=== PATIENT | female | born 1970 | race Caucasian/White ===

== ENCOUNTER 2022-11-24 20:54 | Outpatient (REF) | payer OTHER, SELFPAY ==
[2022-11-30 10:12] LABS: Age Gdln ACOG Testing Note (.); HPV Aptima Negative (Negative); IGP, Aptima HPV, rfx 16/18,45 Note (.)
== END 2022-11-24 20:55 | disposition home or self-care (01) ==
LOC: LAB 20:54
PROVIDERS: PCP Family Medicine; Visit Provider Obstetrics & Gynecology
DX: Z12.4 Encounter for screening for malignant neoplasm of cervix (principal)
CPT/HCPCS: 87624; G0145

== ENCOUNTER 2023-02-09 15:30 | Outpatient (OUT) | payer OTHER, SELFPAY ==
--- NOTE | 2023-02-09 15:36 | XR_ITS ---
The [address] [address] Patient Name: MI GARSIA MRN: [id number] date: 1970 Sex: F Assigned Patient Location: [facility] Current Patient Location: Accession/Order Number: [id number] Exam Date: 02/09/2023 15:50 Report Date: 02/10/2023 02:52 At the request of: HE DE GUZMAN Procedure: XR DEXA axial skeleton EXAMINATION: XR DEXA axial skeleton HISTORY: Screening For Osteoporosis Z01.419 COMPARISON: No relevant comparison available. TECHNIQUE: Dual-energy X-ray absorptiometry (DXA) was performed. FINDINGS: SPINE ANALYSIS: Average bone mineral density is 1.344 g/cm2. T-score (standard deviation relative to young adult mean): 1.4 . HIP ANALYSIS: Lowest bone mineral density is within the left femoral neck, 1.000 g/cm2. T-score (standard deviation relative to young adult mean): -0.3 . XR/XR DEXA axial skeleton IMPRESSION: [employer] Classification: Normal - Low Fracture Risk Electronically authenticated by: KYLIE IVERSON Date: 02/10/2023 02:52
== END 2023-02-09 15:31 | disposition home or self-care (01) ==
LOC: RAD 15:30
PROVIDERS: PCP Family Medicine; Visit Provider Obstetrics & Gynecology
DX: Z01.419 Encounter for gynecological examination (general) (routine) without abnormal findings (principal)
CPT/HCPCS: 77080

== ENCOUNTER 2023-02-11 09:01 | Outpatient (OUT) | payer OTHER, SELFPAY ==
[2023-02-11 09:30] LABS: Hematocrit 39.4 % (36.0-48.0); Hemoglobin 12.3 g/dL (12.0-16.0); Mean Corpuscular HGB Conc 31.2 g/dL (29.9-35.2); Mean Corpuscular Hemoglobin 26.5 pg (26.7-34.0); Mean Corpuscular Volume 84.9 fL (81.0-99.0); Mean Platelet Volume 12.4 fL (9.5-13.5); Platelet Count 257 10^3/uL (150-450); Red Blood Count 4.64 10^6/uL (4.20-5.40); Red Cell Distribution Width 13.8 % (11.0-15.0); White Blood Count 6.5 10^3/uL (4.0-11.0)
[2023-02-11 09:40] LABS: Estimated Average Glucose 105 mg/dL; Glycohemoglobin A1C 5.3 % (4.5-6.2)
[2023-02-11 09:43] LABS: Alanine Aminotransferase 25 U/L (14-59); Albumin Globulin Ratio 0.8; Albumin Level 3.2 g/dL (3.4-5.0); Alkaline Phosphatase 66 U/L (46-116); Anion Gap 13.4; Aspartate Amino Transferase 15 U/L (15-37); BUN Creatinine Ratio 14.8; Bilirubin Total 0.3 mg/dL (0.2-1.0); Calcium 8.3 mg/dL (8.5-10.1); Carbon Dioxide 21.8 mmol/L (21.0-32.0); Chloride 107 mmol/L (98-107); Chol HDL Ratio 3.4; Cholesterol 163 mg/dL (<=200); Estimated GFR (African America >60 (>=60); Estimated GFR (Non-African Ame >60 (>=60); Globulin 3.9 g/dL; Glucose 94 mg/dL (74-106); HDL Cholesterol 48 mg/dL (40-60); LDL Cholesterol Calculated 94.6 mg/dL; Potassium 4.2 mmol/L (3.5-5.1); Sodium 138 mmol/L (136-145); Total Protein 7.1 g/dL (6.4-8.2); Triglycerides 102 mg/dL (<=150); VLDL CHOLESTEROL 20.4 mg/dL
[2023-02-11 10:07] LABS: TSH W/ REFLEX FT4 2.001 (0.358-3.740)
== END 2023-02-11 09:02 | disposition home or self-care (01) ==
PROVIDERS: PCP Family Medicine
DX: N20.0 Calculus of kidney (principal); E66.9 Obesity, unspecified; R40.0 Somnolence; Z78.9 Other specified health status; F32.9 Major depressive disorder, single episode, unspecified; F41.9 Anxiety disorder, unspecified; O24.419 Gestational diabetes mellitus in pregnancy, unspecified control; Z76.89 Persons encountering health services in other specified circumstances
CPT/HCPCS: 36415; 80053; 80061; 82607; 83036; 84443; 85027

== ENCOUNTER 2023-02-15 15:57 | Outpatient (OUT) | payer OTHER, SELFPAY ==
--- NOTE | 2023-02-15 15:59 | MM_ITS ---
Patient Name: MI GARSIA MR#: [id number] : 1970 Exam Date: 02/15/2023 Ordering Doctor: DR Sumanth Jackson . RADIOLOGY REPORT PROCEDURE: MM TOMOSYNTHESIS SCREENING BI COMPARISON: MG MAMM SCREEN 3D DARIAN CAD, 12/03/2021. MG MAMM SCREEN DARIAN W CAD, 01/18/2020. MG MAMM SCREEN DARIAN W CAD, 01/15/2019. MG MAMM DARINA SCRN W CAD DIG, 07/24/2012. INDICATIONS: Screening Calculator Name NCI Breast Cancer Risk Assessment Tool 5 Year Breast Cancer Risk 1.10% Lifetime Breast Cancer Risk 9.90% Personal Breast Cancer No Personal Ovarian Cancer No Treatments Excision Family Cancers Father with lung cancer at age ~40. LOCATION: [facility] BREAST COMPOSITION: Almost entirely fatty. FINDINGS: DIAGNOSTIC CATEGORY 1--NEGATIVE. RIGHT BREAST: No significant suspicious finding. No significant change has occurred. LEFT BREAST: No significant suspicious finding. No significant change has occurred. RECOMMENDATIONS: ROUTINE MAMMOGRAM AND CLINICAL EVALUATION IN 12 MONTHS. PLEASE NOTE: A NORMAL MAMMOGRAM DOES NOT EXCLUDE THE POSSIBILITY OF BREAST CANCER. A CLINICALLY SUSPICIOUS PALPABLE LUMP SHOULD BE BIOPSIED. Dictated by: Alan Gaviria M.D. on 02/17/2023 at 14:16 Approved by: Alan Gaviria M.D. on 02/17/2023 at 14:18
== END 2023-02-15 15:58 | disposition home or self-care (01) ==
LOC: MAMMO 15:57
PROVIDERS: PCP Family Medicine; Visit Provider Obstetrics & Gynecology
DX: Z12.31 Encounter for screening mammogram for malignant neoplasm of breast (principal); Z80.1 Family history of malignant neoplasm of trachea, bronchus and lung
CPT/HCPCS: 77063; 77067

== ENCOUNTER 2024-03-10 11:45 | Outpatient (OUT) | payer OTHER, SELFPAY ==
--- OUTSIDE RECORDS SUMMARY | 2024-03-10 11:49 | XMS_ITS | CCD ---
Author Organization [facility] Care Team Providers Care Icing Coater Name Role Phone MISC, DR JUNG Consulting Unavailable MISC, DR JUNG Admitting Unavailable HINES, DR BARBARA Gilliam Primary Care Unavailable [facility] [place] JUNG Attending Unavailable GEGE, DR CUTLER Attending Unavailable GEGE, DR CUTLER Admitting Unavailable GRAND COULEE, DR MELI Bonds Consulting Unavailable HINES, DR BARBARA Gilliam Primary Care Unavailable GEGE, DR CUTLER Consulting Unavailable GEGE, DR CUTLER Attending Unavailable GEGE, DR CUTLER Consulting Unavailable GEGE, DR CUTLER Admitting Unavailable DONNY, DR BARBARA Gilliam Primary Care Unavailable NIA Healy Attending Provider MD Barbara Hines Primary Care Provider MD Manuel Kim Attending Provider Niecy Mulligan Unavailable Martha Healy Unavailable Barbara Hines Unavailable NIA Healy Attending Provider [phone] MD Barbara Hines Primary Care Provider Martha Healy Attending Unavailable Martha Healy Admitting Unavailable Barbara Hines Primary Care Unavailable Barbara Hines MD Primary Care Provider KIKA CAZARES Attending Unavailable Allergies Allergy Classification Reported Allergen(s) Allergy Type Date of Onset Reaction(s) Facility (20 sources) Codeine Drug Allergy 0 anaphylaxis, Unknown [facility] (1 source) patient allergy list reviewed by nurse or physicia Propensity to adverse reactions 8 Comment:Done [facility] Other (1 source) Allergies Reconciled Propensity to adverse reactions Unknown [facility] Other (1 source) Codeine Drug Allergy 3 [facility] Repository Medications Current Medications Medication Drug Class(es) Dates Sig (Normalized) Sig (Original) 0.5 ML semaglutide 1 MG/ML Auto-Injector [Wegovy] (15 sources) Start: 09-01-2022 inject 0.5 mg by subcutaneous injection every week Wegovy 0.5 MG/0.5ML 0.5mg Subcutaneous once weekly for 28 days Aug, Active Start: 09-01-2022 Wegovy 0.5 MG/ 0.5ML 0.5mg once weekly weeks 5-8 Subcutaneous once weekly for 28 Pt has met the 6mos insurance requirement in a weight management program. Please rerun prescription for insurance coverage. Aug, Active Start: 07-21-2022 Wegovy 0.5 MG/ 0.5ML 0.5mg once weekly weeks 5-8 Subcutaneous once weekly for July, Not-Taking Start: 07-21-2022 Wegovy 0.5 MG/ 0.5ML 0.5mg once weekly weeks 5-8 Subcutaneous once weekly for July, Active 0.5 ML semaglutide 2 MG/ML Auto-Injector [Wegovy] (3 sources) Start: 10-20-2022 inject 1 mg by subcutaneous injection every week Wegovy 1 MG/0.5ML 1mg Subcutaneous once weekly for 28 days Oct, Active 0.75 ML semaglutide 2.27 MG/ML Auto-Injector [Wegovy] (3 sources) Start: 10-22-2022 Wegovy 1.7 MG/0.75ML 1.7mg Subcutaneous once weekly for 28 days To be filled after 4 weeks on Wegovy 1mg Oct, Active 0.75 ML semaglutide 3.2 MG/ML Auto-Injector [Wegovy] (3 sources) Start: 12-06-2022 inject 2.4 mg by subcutaneous injection every week Wegovy 2.4 MG/0.75ML 2.4mg Subcutaneous once weekly for 28 days Nov, Active betamethasone 0.5 mg/ml / clotrimazole 10 mg/ml topical lotion (20 sources) Azole Antifungal, Corticosteroid Start: 07-12-2023 Clotrimazole-Bet amethasone Active 1 APPLIC TOPICAL July 12, 2023 12:00am Clotrimazole-Bet amethasone 1-0.05 % 1 application to affected areas Externally prn for 10 days Active 3 ml liraglutide 6 mg/ml pen injector (10 sources) GLP-1 Receptor Agonist Start: 03-01-2022 inject 3 mg by subcutaneous injection once daily Saxenda 18 MG/3ML INJECT 3MG SUBCUTANEOUSLY ONCE DAILY Subcutaneous Daily for 30 days Feb, Active Semaglutide (Weight Loss) (3 sources) Start: 07-18-2023 Semaglutide (Weight Loss) (Wegovy) 2.4 mg/0.75 mL pen injector Active 2.4 MG SUBCUT every week 3 July 18, 2023 3:42pm Start: 07-12-2023 End: 07-18-2023 Semaglutide (Weight Loss) (W egovy) 2.4 mg/0.75 mL pen injector Discontinued 2.4 MG SUBCUT every week July 12, 2023 12:00am July 18, 2023 3:44pm Start: 07-12-2023 Semaglutide (W eight Loss) (Wegovy) 2.4 mg/0.75 mL pen injector Active 2.4 MG SUBCUT every week July 12, 2023 12:00am Wegovy 1.7 MG/0.75ML solution auto-injector (3 sources) Start: 11-19-2022 Wegovy 1.7 MG/ 0.75ML solution auto-injector Administer the contents of one prefilled pen subcutaneously once weekly as directed 11/19/2022 Active wegovy 2.4 mg/0.75ml solution auto-injector (3 sources) Start: 12-06-2022 inject 2.4 mg by subcutaneous injection every week Wegovy 2.4 MG/0.75ML 2.4mg Subcutaneous once weekly for 90 days Nov, Active Completed/Discontinued Medications Medication Drug Class(es) Dates Sig (Normalized) Sig (Original) azithromycin 250 mg oral tablet (19 sources) Macrolide Antimicrobial Start: 04-28-2022 Azithromycin 250 MG as directed Orally 2 tabs po today, then 1 tab daily x 4 more days for 5 Apr, Not-Taking benzonatate 200 mg oral capsule (19 sources) Non-narcotic Antitussive Start: 04-28-2022 take 1 capsule by mouth every eight hours Benzonatate 200 MG 1 capsule Orally Three times a day for 10 day(s) Apr, Not-Taking Problems Active Problems Problem Classification Problem Date Documented Da te Episodic/Chronic Allergic reactions (9 sources) Urticaria, unspecified; Translations: [Urticaria] Episodic Anxiety disorders (20 sources) Anxiety disorder, unspecified; Translations: [Anxiety] Onset: 05-30-2018 Resolved: 01-15-2019 Chronic Calculus of urinary tract (20 sources) Calculus of kidney; Translations: [Kidney stone] Onset: 03-06-2022 Episodic Cancer; other and unspecified primary (9 sources) 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; Translations: [Malignant melanoma of skin of lower limb, including hip] Onset: 10-14-2016 Resolved: 01-15-2019 Chronic Chronic obstructive pulmonary disease and bronchiectasis (10 sources) Bronchitis, not specified as acute or chronic; Translations: [Bronchitis] Episodic Coma; stupor; and brain damage (20 sources) Somnolence; Translations: [Excessive daytime sleepiness - normal night sleep] Onset: 03-02-2022 Episodic Diabetes mellitus without complication (12 sources) Impaired fasting glucose; Translations: [Impaired fasting glycemia] Episodic Diabetes or abnormal glucose tolerance complicating ; childbirth; or the puerperium (20 sources) Gestational diabetes mellitus in , unspecified control; Translations: [History of gestational diabetes mellitus] Episodic Mood disorders (20 sources) Major depressive disorder, single episode, unspecified; Translations: [Depression] Onset: 03-06-2022 Chronic Neoplasms of unspecified nature or uncertain behavior (2 sources) Neoplastic disease; Translations: [Neoplasm of unspecified behavior of bone, soft tissue, and skin] 02-21-2024 Episodic Other and unspecified benign neoplasm (2 sources) Melanocytic nevus of trunk; Translations: [Melanocytic nevi of trunk] 02-21-2024 Episodic Other and unspecified benign neoplasm (2 sources) Melanocytic nevus of lower limb; Translations: [Melanocytic nevi of unspecified lower limb, including hip] 02-21-2024 Episodic Other and unspecified benign neoplasm (2 sources) Dermatofibroma; Translations: [Other benign neoplasm of skin, unspecified] 02-21-2024 Episodic Other female genital disorders (9 sources) Leukoplakia of vulva; Translations: [Leukoplakia of vulva] Episodic Other nutritional; endocrine; and metabolic disorders (19 sources) Obesity, unspecified; Translations: [Obesity, unspecified] Onset: 03-06-2022 Chronic Other nutritional; endocrine; and metabolic disorders (20 sources) Body mass index 40+ - severely obese; Translations: [Body mass index (BMI) 40.0-44.9, adult] Chronic Other nutritional; endocrine; and metabolic disorders (20 sources) Obese class II; Translations: [Body mass index (BMI) 37.0-37.9, adult] Onset: 09-08-2017 Resolved: 01-15-2019 Chronic Other nutritional; endocrine; and metabolic disorders (20 sources) Obesity; Translations: [Obesity, unspecified] Resolved: 01-15-2019 06-10-2023 Chronic Other nutritional; endocrine; and metabolic disorders (1 source) Body mass index (BMI) 37.0-37.9, adult Chronic Other nutritional; endocrine; and metabolic disorders (3 sources) Body mass index (BMI) 36.0-36.9, adult Chronic Other nutritional; endocrine; and metabolic disorders (9 sources) Morbid obesity; Translations: [Morbid (severe) obesity due to excess calories] Chronic Other nutritional; endocrine; and metabolic disorders (2 sources) Obesity caused by energy imbalance; Translations: [Morbid (severe) obesity due to excess calories] 06-10-2023 Chronic Other nutritional; endocrine; and metabolic disorders (2 sources) Obese class I; Translations: [Obesity, unspecified] 06-10-2023 Chronic Other nutritional; endocrine; and metabolic disorders (10 sources) Abnormal weight gain; Translations: [Abnormal weight gain] Onset: 09-08-2017 Resolved: 01-15-2019 07-20-2023 Episodic Other nutritional; endocrine; and metabolic disorders (1 source) Abnormal weight gain; Translations: [Abnormal weight gain] 07-18-2023 Episodic Other skin disorders (2 sources) Seborrheic keratosis; Translations: [Other seborrheic keratosis] 02-21-2024 Episodic Other skin disorders (2 sources) Lentiginosis; Translations: [Other melanin hyperpigmentation] 02-21-2024 Episodic Other upper respiratory infections (9 sources) Acute pharyngitis; Translations: [Acute pharyngitis, unspecified] Episodic Residual codes; unclassified (7 sources) Other specified health status; Translations: [Other specified conditions influencing health status] Episodic Residual codes; unclassified (2 sources) Current drinker; Translations: [Other specified health status] 06-10-2023 Episodic Past or Other Problems Problem Classification Problem Date Documented Date Episodic/Chronic Administrative/social admission (11 sources) Persons encountering health services in other specified circumstances; Translations: [Other specified counseling] Onset: 04-26-2023 Episodic Immunizations and screening for infectious disease (1 source) Encounter for screening for human papillomavirus (HPV); Translations: [ENC SCREENING HUMAN PAPILLOMAVIRUS] Onset: 11-12-2021 Episodic Other nutritional; endocrine; and metabolic disorders (9 sources) Body mass index 30+ - obesity; Translations: [Body mass index 36.0-36.9, adult] Onset: 09-08-2017 Resolved: 01-15-2019 Chronic Other screening for suspected conditions (not mental disorders or infectious disease) (8 sources) Encounter for screening mammogram for malignant neoplasm of breast; Translations: [Encounter for screening for malignant neoplasm of cervix] Onset: 11-12-2021 Episodic Other skin disorders (9 sources) Disorder of skin and/or subcutaneous tissue; Translations: [Unspecified disorder of skin and subcutaneous tissue] Onset: 10-14-2016 Resolved: 01-15-2019 Episodic Other skin disorders (9 sources) Atrophoderma; Translations: [Unspecified hypertrophic and atrophic condition of skin] Onset: 09-08-2017 Resolved: 01-15-2019 Episodic Residual codes; unclassified (1 source) Family history of malignant neoplasm of trachea, bronchus and lung; Translations: [FAM HX MALIG NEOPLSM TRACH BRON LNG] Onset: 12-07-2021 Episodic Unclassified (9 sources) Abnormal Papanicolaou smear of vagina and vaginal HPV; Translations: [Abnormal Papanicolaou smear of vagina and vaginal HPV] Onset: 03-05-2009 Unclassified (9 sources) care; Translations: [Supervision of other normal ] Onset: 09-02-2009 Unclassified (9 sources) Surveillance of oral contraception done; Translations: [Surveillance of previously prescribed contraceptive pill] Onset: 12-26-2006 Unclassified (9 sources) Contraception care education done; Translations: [General counseling for prescription of oral contraceptives] Onset: 08-12-2006 Results Test Name Value Interpretation Reference Range Facility No Panel Informationon 02-20 Type of biopsy: tangential Informed consent: discussed and consent obtained Informed consent comment: The risks and benefits of the biopsy were discussed. Risks include but are not limited to bleeding, infection, scarring, pain, and nerve damage. An opportunity to ask questions prior to the procedure was permitted and all questions were answered. Patient was prepped and draped in usual sterile fashion: area cleansed with alcohol. Anesthesia: the lesion was anesthetized in a standard fashion Anesthetic: 1% lidocaine w/ epinephrine 1-100,000 buffered w/ 8.4% NaHCO3 Instrument used: DermaBlade Hemostasis achieved with: electrodesiccation Outcome: patient tolerated procedure well Outcome comment: The specimen was placed in a prelabeled formalin container to be sent for pathology Post-procedure details: sterile dressing applied and wound care instructions given Post-procedure details comment: Emphasized need to contact clinic for any signs of infection, uncontrollable bleeding, or complications. Dressing type: bandage Additional details: Photo taken Amount of lidocaine used: 1.0 [facility] A1C HEMOGLOBINon 04-19-2022 HbA1c (Bld) [Mass fraction] 5.5 % [facility] Other HbA1c (Bld) [Mass fraction]o n 04-19-2022 [facility] Metabolic Pane gladys 03-02-2022 Comprehensive Metabolic Panel [facility] Other Comprehensive Metabolic Panel >60 [facility] Other Comprehensive Metabolic Panel 4.0 [facility] Other LIPID PROFILEon 03-02-2022 CHOL-HDL RATIO NORM SEE BELOW Normal [facility] Comment on above: Result Comment: 3.3 - 4.4 LOW RISK 4.4 - 7.1 AVERAGE RISK 7.1 - 11.0 MODERATE RISK >11.0 HIGH RISK Performed By: #### T SH, CMP, LIPID #### [facility] [address] [place] [address] Dr. Valerie Devine Cholesterol [Mass/Vol] 143 mg/dL [facility] Comment on above: Performed By: #### T SH, CMP, LIPID #### [facility] [address] [place] [address] Dr. Valerie Devine Cholesterol in HDL [Mass/Vol] 55 mg/dL [facility] Comment on above: Performed By: #### T SH, CMP, LIPID #### [facility] [address] [place] [address] Dr. Valerie Devine Cholesterol in LDL [Mass/Vol] 74.2 mg/dL Normal [facility] Comment on above: Performed By: #### T SH, CMP, LIPID #### [facility] [address] [place] [address] Dr. Valerie Devine Cholesterol.total/C holesterol in HDL [Mass ratio] 2.6 {ratio} [facility] Comment on above: Performed By: #### T SH, CMP, LIPID #### [facility] [address] [place] [address] Dr. Valerie Devine HDL NORMAL > or = 60 mg/dl - LO W CARDIOVASCULAR RISK <40 mg/dl - HIGH CARDIOVASCULAR RISK Normal [facility] Comment on above: Performed By: #### T SH, CMP, LIPID #### [facility] [address] [place] [address] Dr. Valerie Devine LDL CALC NORMAL SEE BELOW Normal [facility] Comment on above: Result Comment: <100 mg/dl OPTIMAL 100 - 129 mg/dl NEAR OR ABOVE OPTIMAL 130 - 159 mg/dl BORDERLINE HIGH 160 - 189 mg/dl HIGH >190 mg/dl VERY HIGH Performed By: #### T SH, CMP, LIPID #### [facility] [address] [place] [address] Dr. Valerie Devine Triglyceride [Mass/Vol] 69 mg/dL Normal <=150 [facility] Comment on above: Performed By: #### T SH, CMP, LIPID #### [facility] [address] [address] [address] Valerie Devine VLDL CALC 13.8 mg/dL Normal [facility] Comment on above: Performed By: #### T SH, CMP, LIPID #### [facility] [address] [address] [address] Valerie Devine Lipid Panelon 03-02-2022 Cholesterol in LDL Elph Qn 74.2 [facility] Other Lipid Panel 69 [facility] Other Lipid Panel 13.8 [facility] Other PROF 14(COMP METB)on 022 Albumin [Mass/Vol] 3.2 g/dL [facility] Comment on above: Performed By: #### T SH, CMP, LIPID #### [facility] [address] [place] [address] Dr. Valerie Devine Albumin/Globulin [Mass ratio] 0.8 {ratio} [facility] Comment on above: Performed By: #### T SH, CMP, LIPID #### [facility] [address] [place] [address] Dr. Valerie Devine ALP [Catalytic activity/Vol] 81 U/L [facility] Comment on above: Performed By: #### T SH, CMP, LIPID #### [facility] [address] [place] [address] Dr. Valerie Devine ALT [Catalytic activity/Vol] 21 U/L [facility] Comment on above: Performed By: #### T SH, CMP, LIPID #### [facility] [address] [place] [address] Dr. Valerie Devine Anion gap [Moles/Vol] 15.8 mmol/L [facility] Comment on above: Performed By: #### T SH, CMP, LIPID #### [facility] [address] [place] [address] Dr. Valerie Devine AST [Catalytic activity/Vol] 15 U/L [facility] Comment on above: Performed By: #### T SH, CMP, LIPID #### [facility] [address] [place] [address] Dr. Valerie Devine Bilirubin [Mass/Vol] 0.4 mg/dL [facility] Comment on above: Performed By: #### T SH, CMP, LIPID #### [facility] [address] [address] [address] Valerie Devine Calcium [Mass/Vol] 8.3 mg/dL [facility] Comment on above: Performed By: #### T SH, CMP, LIPID #### [facility] [address] [place] [address] Dr. Valerie Devine Chloride [Moles/Vol] 107 mmol/L [facility] Comment on above: Performed By: #### T SH, CMP, LIPID #### [facility] [address] [place] [address] Dr. Valerie Devine CO2 [Moles/Vol] 20.0 mmol/L [facility] Comment on above: Performed By: #### T SH, CMP, LIPID #### [facility] [address] [place] [address] Dr. Valerie Devine Creatinine [Mass/Vol] 0.80 mg/dL [facility] Comment on above: Performed By: #### T SH, CMP, LIPID #### [facility] [address] [place] [address] Dr. Valerie Devine EGFR-AF BELIZEAN >60 Normal >=60 [facility] Comment on above: Performed By: #### T SH, CMP, LIPID #### [facility] [address] [place] [address] Dr. Valerie Devine EGFR-NON AF BELIZEAN >60 Normal >=60 [facility] Comment on above: Performed By: #### T SH, CMP, LIPID #### [facility] [address] [place] [address] Dr. Valerie Devine Globulin (S) [Mass/Vol] 4.0 g/dL Normal [facility] Comment on above: Performed By: #### T SH, CMP, LIPID #### [facility] [address] [place] [address] Dr. Valerie Devine Glucose [Mass/Vol] 106 mg/dL [facility] Comment on above: Performed By: #### T SH, CMP, LIPID #### [facility] [address] [place] [address] Dr. Valerie Devine Potassium [Moles/Vol] 3.8 mmol/L [facility] Comment on above: Performed By: #### T SH, CMP, LIPID #### [facility] [address] [place] [address] Dr. Valerie Devine Protein [Mass/Vol] 7.2 g/dL [facility] Comment on above: Performed By: #### T COLE, CMP, LIPID #### [facility] [address] [place] [address] Dr. Valerie Devine Sodium [Moles/Vol] 139 mmol/L [facility] Comment on above: Performed By: #### T COLE CMP, LIPID #### [facility] [address] [place] [address] Dr. Valerie Devine Urea nitrogen [Mass/Vol] 13.0 mg/dL [facility] Comment on above: Performed By: #### T COLE, CMP, LIPID #### [facility] [address] [place] [address] Dr. Valerie Devine Urea nitrogen/Creatinine [Mass ratio] 16.2 mg/mg Normal [facility] Comment on above: Performed By: #### T COLE, CMP, LIPID #### [facility] [address] [place] [address] Dr. Valerie Devine TSHon 03-02-2022 TSH 2.402 uIU/mL Normal 0.358-3.740 [facility] Comment on above: Performed By: #### T SH, CMP, LIPID #### [facility] [address] [place] [address] Dr. Valerie Devine Thyroid Stim Hormone w/Rflxo n 03-02-2022 Thyroid Stim Hormone w/Rflx 2.402 [facility] Other VITAMIN B12on 03-02-2022 Cobalamin (Vitamin B12) [Mass/Vol] 473.0 pg/mL [facility] Comment on above: Performed By: #### V [id number] #### [facility] [address] [address] [address] Valerie Devine MG MAMM SCREEN 3D DARIAN CADon 12-03-2021 MG MAMM SCREEN 3D DARIAN CAD Patient: SAVANNAH MILES Exam Date: 12/03/2021 : 1970 Gender:F Ordering : DR HE DE GUZMAN . Admission #: [id number] Family : Order #: [id number] CLICK HERE TO VIEW EXAM RADIOLOGY REPORT PROCEDURE: MAMMOGRAM SCREENING 3D BILATERAL CAD COMPARISON: MG MAMM SCREEN DARIAN W CAD, 01/18/2020. MG MAMM SCREEN DARIAN W CAD, 01/15/2019. INDICATIONS: Screening for malignant neoplasm of breast Calculator Name NCI Breast Cancer Risk Assessment Tool 5 Year Breast Cancer Risk 1.00% Lifetime Breast Cancer Risk 10.00% Personal Breast Cancer No Personal Ovarian Cancer No Treatments Excision Family Cancers Father with lung cancer at age 40. LOCATION: [facility] BREAST COMPOSITION: Almost entirely fatty. FINDINGS: DIAGNOSTIC CATEGORY 1--NEGATIVE. NO CHANGE FROM COMPARISON ASSESSMENT. Scattered benign-appearing calcifications are present. RIGHT BREAST: No significant suspicious finding. LEFT BREAST: No significant suspicious finding. RECOMMENDATIONS: ROUTINE MAMMOGRAM AND CLINICAL EVALUATION IN 12 MONTHS. PLEASE NOTE: A NORMAL MAMMOGRAM DOES NOT EXCLUDE THE POSSIBILITY OF BREAST CANCER. A CLINICALLY SUSPICIOUS PALPABLE LUMP SHOULD BE BIOPSIED. Dictated by: Meli Terrazas MD on 12/04/2021 at 07:38 Approved by: Meli Terrazas MD on 12/04/2021 at 07:39 Normal [facility] PAP ACOG PANEL 2: 30 to 65on 11-19-2021 . . Normal [facility] Comment on above: Result Comment: Perf ormed at: [facility] Performed By: #### [id number] #### [facility] [address] [address] [address] Valerie Devine Age Gdln ACOG Testing 30-65 Normal [facility] Comment on above: Performed By: #### [id number] #### [facility] [id number] Valerie Devine DIAGNOSIS: Comment Normal [facility] Comment on above: Result Comment: NEGA TIVE FOR INTRAEPITHELIAL LESION OR MALIGNANCY. REACTIVE CELLULAR CHANGES AND/OR REPAIR ARE PRESENT. Performed at: [facility] Performed By: #### [id number] #### [facility] [address] [place] [address] Dr. Valerie Devine Electronically signed by: Comment Normal [facility] Comment on above: Result Comment: Sami Castorena MD, Pathologist Performed at: [facility] Performed By: #### [id number] #### [facility] [facility] [address] [address] [address] Valerie Devine HPV Aptima Negative Normal Negative [facility] Comment on above: Result Comment: This nucleic acid amplification test detects fourteen high-risk HPV types (16,18,31,33,35,39,45,51,52,56,58,59,66,68) without differentiation. Performed at: =G Performed By: #### [id number] #### [facility] [address] [place] [address] Dr. Valerie Devine Methodology: Comment Normal [facility] Comment on above: Result Comment: This liquid based ThinPrep(R) pap test was screened with the use of an image guided system. Performed at: WB Performed By: #### [id number] #### [facility] [address] [place] [address] Dr. Valerie Devine Note: Comment Normal [facility] Comment on above: Result Comment: The Pap smear is a screening test designed to aid in the detection of premalignant and malignant conditions of the uterine cervix. It is not a diagnostic procedure and should not be used as the sole means of detecting cervical cancer. Both false-positive and false-negative reports do occur. . Performed at: WB Performed By: #### [id number] #### [facility] [address] [address] [address] Valerie Devine Performed by: Comment Normal [facility] Comment on above: Result Comment: Janeth Alonzo, Fish Bin Tender (ASCP) Performed at: WB Performed By: #### [id number] #### [facility] [address] [place] [address] Dr. Valerie Devine Specimen adequacy: Comment Normal [facility] Comment on above: Result Comment: Sati sfactory for evaluation. Endocervical and/or squamous metaplastic cells (endocervical component) are present. Performed at: WB Performed By: #### [id number] #### [facility] [address] [address] [address] Valerie Devine Vital Signs Date Time Vital Sign Value Performing Clinician Facility 07-18-2023 14:52-0400 Body height 162.56 cm MD Barbara Hines Work Phone: [facility] 07-18-2023 14:52-0400 Body mass index (BMI) [Ratio] 33.3 kg/m2 MD Barbara Hines Work Phone: [facility] 07-18-2023 14:52-0400 Body weight 88.08 kg MD Barbara Hines Work Phone: [facility] 07-18-2023 14:52-0400 Diastolic blood pressure 90 mm[Hg] MD Barbara Hines Work Phone: [facility] 07-18-2023 14:52-0400 Heart rate 69 /min MD Barbara Hines Work Phone: [facility] 07-18-2023 14:52-0400 Respiratory rate 20 /min MD Barbara Hines Work Phone: [facility] 07-18-2023 14:52-0400 SaO2% (BldA) [Mass fraction] 99 % MD Barbara Hines Work Phone: [facility] 07-18-2023 14:52-0400 Systolic blood pressure 137 mm[Hg] MD Barbara Hinse Work Phone: [facility] 04-26-2023 15:15-0500 Body height 162.56 cm [facility] Other 04-26-2023 15:15-0500 Body mass index (BMI) [Ratio] 32.59 kg/m2 [facility] Other [facility] Other 04-26-2023 15:15-0500 Body weight 86.14 kg Niecy Mulligan Other [facility] Other 03-16-2023 15:15-0500 Body height 162.56 cm Martha Missler Other [facility] Other 03-16-2023 15:15-0500 Body mass index (BMI) [Ratio] 32.78 kg/m2 Martha Missler Other [facility] Other 03-16-2023 15:15-0500 Body weight 86.64 kg Martha Missler Other [facility] Other 03-16-2023 15:15-0500 Diastolic blood pressure 80 mm[Hg] Martha Missler Other [facility] Other 03-16-2023 15:15-0500 Respiratory rate 18 /min Martha Missler Other [facility] Other 03-16-2023 15:15-0500 SaO2% (BldA) [Mass fraction] 97 % Martha Missler Other [facility] Other 03-16-2023 15:15-0500 Systolic blood pressure 124 mm[Hg] Martha Missler Other [facility] Other 01-17-2023 14:45-0400 Body height 162.56 cm Martha Missler Other [facility] Other 01-17-2023 14:45-0400 Body mass index (BMI) [Ratio] 34.26 kg/m2 Martha Missler Other [facility] Other 01-17-2023 14:45-0400 Body weight 90.54 kg Martha Missler Other [facility] Other 01-17-2023 14:45-0400 Diastolic blood pressure 81 mm[Hg] Martha Missler Other [facility] Other 01-17-2023 14:45-0400 Respiratory rate 18 /min Martha Missler Other [facility] Other 01-17-2023 14:45-0400 SaO2% (BldA) [Mass fraction] 99 % Martha Missler Other [facility] Other 01-17-2023 14:45-0400 Systolic blood pressure 124 mm[Hg] Martha Missler Other [facility] Other 12-06-2022 14:45-0400 Body height 162.56 cm Martha Missler Other [facility] Other 12-06-2022 14:45-0400 Body mass index (BMI) [Ratio] 35.53 kg/m2 Martha Missler Other [facility] Other 12-06-2022 14:45-0400 Body weight 93.9 kg Martha Missler Other [facility] Other 12-06-2022 14:45-0400 Diastolic blood pressure 84 mm[Hg] Martha Missler Other [facility] Other 12-06-2022 14:45-0400 Respiratory rate 18 /min Martha Missler Other [facility] Other 12-06-2022 14:45-0400 SaO2% (BldA) [Mass fraction] 97 % Martha Missler Other [facility] Other 12-06-2022 14:45-0400 Systolic blood pressure 146 mm[Hg] Martha Missler Other [facility] Other 10-20-2022 15:15-0400 Body height 162.56 cm Martha Missler Other [facility] Other 10-20-2022 15:15-0400 Body mass index (BMI) [Ratio] 36.61 kg/m2 Martha Missler Other [facility] Other 10-20-2022 15:15-0400 Body weight 96.75 kg Martha Missler Other [facility] Other 10-20-2022 15:15-0400 Diastolic blood pressure 86 mm[Hg] Martha Missler Other [facility] Other 10-20-2022 15:15-0400 Respiratory rate 18 /min Martha Missler Other [facility] Other 10-20-2022 15:15-0400 SaO2% (BldA) [Mass fraction] 99 % Martha Missler Other [facility] Other 10-20-2022 15:15-0400 Systolic blood pressure 137 mm[Hg] Martha Missler Other [facility] Other 10-19-2022 15:15-0400 Body height 162.56 cm Niecy Fitt Other [facility] Other 10-19-2022 15:15-0400 Body mass index (BMI) [Ratio] 36.49 kg/m2 Niecy Fitt Other [facility] Other 10-19-2022 15:15-0400 Body weight 96.44 kg Niecy Fitt Other [facility] Other 09-01-2022 15:15-0400 Body height 162.56 cm Martha Missler Other [facility] Other 09-01-2022 15:15-0400 Body mass index (BMI) [Ratio] 37.52 kg/m2 Martha Missler Other [facility] Other 09-01-2022 15:15-0400 Body weight 99.16 kg Martha Missler Other [facility] Other 09-01-2022 15:15-0400 Diastolic blood pressure 91 mm[Hg] Martha Missler Other [facility] Other 09-01-2022 15:15-0400 Respiratory rate 18 /min Martha Missler Other [facility] Other 09-01-2022 15:15-0400 SaO2% (BldA) [Mass fraction] 99 % Martha Missler Other [facility] Other 09-01-2022 15:15-0400 Systolic blood pressure 130 mm[Hg] Martha Missler Other [facility] Other 07-28-2022 16:15-0400 Body height 162.56 cm Niecy Rochet Other [facility] Other 07-21-2022 16:15-0400 Body height 162.56 cm Martha Missler Other [facility] Other 07-21-2022 16:15-0400 Body mass index (BMI) [Ratio] 36.93 kg/m2 Martha Missler Other [facility] Other 07-21-2022 16:15-0400 Body weight 97.61 kg Martha Missler Other [facility] Other 07-21-2022 16:15-0400 Diastolic blood pressure 88 mm[Hg] Martha Missler Other [facility] Other 07-21-2022 16:15-0400 Respiratory rate 18 /min Martha Missler Other [facility] Other 07-21-2022 16:15-0400 SaO2% (BldA) [Mass fraction] 96 % Martha Missler Other [facility] Other 07-21-2022 16:15-0400 Systolic blood pressure 141 mm[Hg] Martha Missler Other [facility] Other 06-02-2022 16:15-0400 Body height 162.56 cm Martha Missler Other [facility] Other 06-02-2022 16:15-0400 Body mass index (BMI) [Ratio] 37.04 kg/m2 Martha Missler Other [facility] Other 06-02-2022 16:15-0400 Body weight 97.89 kg Martha Missler Other [facility] Other 06-02-2022 16:15-0400 Diastolic blood pressure 90 mm[Hg] Martha Missler Other [facility] Other 06-02-2022 16:15-0400 Respiratory rate 18 /min Martha Missler Other [facility] Other 06-02-2022 16:15-0400 SaO2% (BldA) [Mass fraction] 97 % Martha Missler Other [facility] Other 06-02-2022 16:15-0400 Systolic blood pressure 142 mm[Hg] Martha Missler Other [facility] Other 04-19-2022 15:45-0500 Body height 162.56 cm Martha Missler Other [facility] Other 04-19-2022 15:45-0500 Body mass index (BMI) [Ratio] 37.45 kg/m2 Martha Missler Other [facility] Other 04-19-2022 15:45-0500 Body weight 98.98 kg Martha Missler Other [facility] Other 04-19-2022 15:45-0500 Diastolic blood pressure 83 mm[Hg] Martha Missler Other [facility] Other 04-19-2022 15:45-0500 Respiratory rate 16 /min Martha Missler Other [facility] Other 04-19-2022 15:45-0500 SaO2% (BldA) [Mass fraction] 98 % Martha Missler Other [facility] Other 04-19-2022 15:45-0500 Systolic blood pressure 134 mm[Hg] Martha Missler Other [facility] Other 04-06-2022 09:15-0500 Body height 162.56 cm Niecy Fitt Other [facility] Other 03-01-2022 08:30-0500 Body height 162.56 cm Martha Missler Other [facility] Other 03-01-2022 08:30-0500 Body mass index (BMI) [Ratio] 37.84 kg/m2 Martha Missler Other [facility] Other 03-01-2022 08:30-0500 Body weight 100.02 kg Martha Missler Other [facility] Other 03-01-2022 08:30-0500 Diastolic blood pressure 86 mm[Hg] Martha Missler Other [facility] Other 03-01-2022 08:30-0500 Respiratory rate 18 /min Martha Missler Other [facility] Other 03-01-2022 08:30-0500 SaO2% (BldA) [Mass fraction] 98 % Martha Missler Other [facility] Other 03-01-2022 08:30-0500 Systolic blood pressure 133 mm[Hg] Martha Missler Other [facility] Other Encounters Encounter Date Encounter Type Care Provider Facility Start: 02-21-2024 End: 02-21-2024 Office outpatient visit 15 minutes Kika Cazares [employer]IDE LO[employer] ESC[employer]-CNC MANAGER Work Phone: [facility] Comment on above: Melanocytic nevus of trunk (Primary Dx); Melanocytic nevus of lower extremity, unspecified laterality; Seborrheic keratosis; Lentigines; Dermatofibroma; History of nevus excision; Neoplasm of unspecified behavior of bone, soft tissue, and skin Start: 02-21-2024 End: 02-21-2024 ambulatory KIKA CAZARES Not Available Start: 02-21-2024 End: 02-21-2024 [employer] Kika Cazares [employer] LO[employer] ESC[employer]-CNC MANAGER Work Phone: [facility] Start: 02-21-2024 End: 02-21-2024 [employer] Kika Cazares [employer]IDE LOAD ESC[employer]-CNC MANAGER Work Phone: [facility] Start: 07-18-2023 End: 07-18-2023 ambulatory MD Barbara Hines Work Phone: [facility] [place] Work Phone: Start: 07-18-2023 End: 07-18-2023 Patient encounter procedure MD Barbara Hines Work Phone: [facility] Work Phone: Start: 04-26-2023 Registered Recurring MD Barbara Hines Work Phone: [facility] Work Phone: Start: 04-26-20[address] ([facility] [address] FU) [facility] [employer] Teacher Niecy Mulligan [facility] Start: 04-26-2023 End: 04-26-2023 ambulatory Martha Healy [facility] Other Start: 03-31-2023 End: 03-31-2023 ambulatory Martha Healy Other [facility] Other Start: 03-31-2023 Telephone encounter Martha Monet [facility] Start: 03-16-2023 ([facility]CCC[facility]NF/U) Weight Management f/u Martha Monet [facility] Start: 03-16-2023 End: 03-16-2023 ambulatory Martha Missler Other [facility] Other Start: 02-14-2023 End: 02-14-2023 ambulatory Martha Missler Other [facility] Other Start: 02-14-2023 Telephone encounter Martha [facility] Start: 01-17-2023 (FCCCWMNF/U) Weight Management f/u Martha [facility] Start: 01-17-2023 End: 01-17-2023 ambulatory Martha Missler Other [facility] Other Start: 12-06-2022 (FCCCWMNF/U) Weight Management f/u Marthaher Healy [facility] Start: 12-06-2022 End: 12-06-2022 ambulatory Martha Missler Other [facility] Other Start: 11-19-2022 End: 11-19-2022 ambulatory Martha Missler Other [facility] Other Start: 11-19-2022 Telephone encounter Martha [facility] Start: 10-20-2022 (FCCCWMNF/U) Weight Management f/u Martha [facility] Start: 10-20-2022 End: 10-20-2022 ambulatory Martha Missler Other [facility] Other Start: 10-19-2022 ([facility] FU) [facility] F/ U [employer] Niecy Mulligan [facility] Start: 10-19-2022 End: 10-19-2022 ambulatory Niecy Fitt Other [facility] Other Start: 09-29-2022 End: 09-29-2022 ambulatory Martha Missler Other [facility] Other Start: 09-29-2022 Telephone encounter Martha ler [facility] Start: 09-27-2022 End: 09-27-2022 ambulatory Martha Missler Other [facility] Other Start: 09-27-2022 Telephone encounter Martha ler [facility] Start: 09-02-2022 End: 09-02-2022 ambulatory Martha Missler Other [facility] Other Start: 09-02-2022 Telephone encounter Martha [facility] Start: 09-01-2022 (FCCCWMNF/U) Weight Management f/u Martha [facility] Start: 09-01-2022 End: 09-01-2022 ambulatory Martha Missler Other [facility] Other Start: 07-28-2022 End: 07-28-2022 ambulatory Niecy Fitt Other [facility] Other Start: 07-28-2022 IBT for Obesity init ial 30 min (Max charge 2 units) Niecy Fitt [facility] Start: 07-21-2022 (FCCCWMNF/U) Weight Management f/u Martha [facility] Start: 07-21-2022 End: 07-21-2022 ambulatory Martha Missler Other [facility] Other Start: 06-07-2022 End: 06-07-2022 ambulatory Martha Missler Other [facility] Other Start: 06-07-2022 Telephone encounter Martha Healy [facility] Start: 06-02-2022 ([facility]) Weight Management f/u [facility] Start: 06-02-2022 End: 06-02-2022 ambulatory Martha Healy Other [facility] Other Start: 04-28-2022 (Televisit) [facility]visit [facility] Start: 04-28-2022 End: 04-28-2022 ambulatory Barbara Hines Other [facility] Other Start: 04-20-2022 End: 04-20-2022 ambulatory Niecy Mulligan Other [facility] Other Start: 04-20-2022 Encounter by madisyn smith [facility] Start: 04-19-2022 ([facility]) Weight Management f/u [facility] Start: 04-19-2022 End: 04-19-2022 ambulatory Martha Healy Other [facility] Other Start: 04-14-2022 End: 04-14-2022 ambulatory Niecy Fitt Other [facility] Other Start: 04-14-2022 Telephone encounter Niecy Fitt [facility] Start: 04-06-2022 End: 04-06-2022 ambulatory Niecy Fitt Other [facility] Other Start: 04-06-2022 IBT FOR OBESITY GROU P 2-10 30M Niecy Mulligan [facility] Start: 03-30-2022 End: 03-30-2022 ambulatory MD Barbara Hines Work Phone: [facility] Work Phone: Start: 03-30-2022 End: 03-30-2022 Departed Referred MD Barbara Hines Work Phone: [facility] [place] Work Phone: Start: 03-04-2022 End: 03-04-2022 ambulatory Martha Healy Other [facility] Other Start: 03-04-2022 Telephone encounter Martha Healy [facility] Start: 03-02-2022 End: 03-03-[address] DOCTOR SOTOMAYOR Facility:[facility] Start: 03-01-2022 Registered Recurring MD Barbara Hines Work Phone: [facility] Work Phone: Start: 03-01-2022 End: 03-01-2022 ambulatory Marthaher Healy Other [facility] Other Start: 03-01-2022 Nutrition therapy Martha [facility] Start: 02-02-2022 End: 02-02-2022 ambulatory Niecy Mulligan Other [facility] Other Start: 02-02-2022 Telephone encounter Niecy Mulligan [facility] Start: 12-03-2021 End: 12-04-[address] HE DE GUZMAN Facility:[facility] Start: 11-12-2021 End: 11-12-[address] HE DE GUZMAN Facility:[facility] Start: 11-11-2021 Adult health examination Niecy Mulligan Other [facility] Other Start: 11-11-2021 Gynecological examin ation normal Niecy Mulligan Other [facility] Other Procedures Date Procedure Procedure Detail Performing Clinician Start: 02-21-2024 SKIN / NAIL BIOPSY Mar Cazares [employer] ESC[employer]-CNC MANAGER Work Phone: Start: 11-10-2021 Screening for malign ant neoplasm of breast Niecy Mulligan Other Start: 01-27-2009 End: 11-01-2016 Contraception care education Niecy Mulligan Other Start: 08-12-2006 End: 11-01-2016 visit Niecy Mulligan Other Depression screening Niecy cardenas Other H/O: surgery History of nevus excision Kika Cazares [employer] LO[employer] ESC[employer]-CNC MANAGER Work Phone: Plan of Treatment Date Care Activity Detail Author Start: 02-21-2025 End: 02-21-2025 Patient encounter procedure 02/21/2025 3:25 PM EST Office Visit [facility] [address] [place] [address] Kika Cazares [employer] LO[employer] ESC[employer]-CNC MANAGER [address] [place] [address] [facility] Start: 02-21-2024 End: 02-21-2024 Patient encounter procedure 02/21/2024 3:25 PM EST Office Visit [facility] [address] [place] [address] Kika Cazares [employer] LO[employer] ESC[employer]-CNC MANAGER [address] [place] [address] Arrived [facility] Comment on above: Arrived Dermatopathology exam Dermatopat hology exam Pathology and Cytology Timed Neoplasm of unspecified behavior of bone, soft tissue, and skin Release Upon Ordering for 1 Occurrences starting 02/21/2024 [facility] Work Phone: Comment on above: Release Upon Ordering for 1 Occurrences starting 02/21/2024 Payers Date Payer Category Payer Self-pay 2020 Managed Care HMO (unspecified) [employer] [id number] 1972 Unknown [id number] 1972 Unknown [id number] 1972 Unknown [id number] 1972 Unknown [id number] 1959 Private Health Insurance [id number] Unknown [id number] Social History Date Type Detail Facility Tobacco smoking stat us NEIS Unknown if ever smoked [facility] Work Phone: Start: 1970 Sex Assigned At Female [facility] Start: 02-17-2023 End: 02-21-2024 Sex Assigned At Located Within [facility] [employer] Other Start: 02-17-2023 End: 07-18-2023 Tobacco smoking status NHIS Never smoked tobacco (finding) [facility] Start: 02-17-2023 Tobacco use and exposure Smokeless tobacco non-user [facility] Start: 02-17-2023 End: 02-21-2024 History of Social function [facility] Start: 11-23-2022 Gender identity Identifies as female gender (finding) [facility] Start: 11-23-2022 Sexual orientation Heterosexual (finding) [facility] Medical Equipment Procedure Code Equipment Code Equipment Origin al Text Equipment Identifier Dates Pen [place] [id number] X 5 MM Start: 03-01-2022 Clinical Notes 03-01-2022 to 02-21-2024 Kika Cazares, WIDE LOAD ESCORT-CNC MANAGER - 02/21/2024 3:25 PM EST Note Date & Type Note Facility 02-21-2024 History of Presen t illness Narrative Images from the original note were not included. Skin Check Location: Patient requests a full body skin examination Dermatologic history: History of Severely atypical nevus (right lower back excised 12/08/16), History of worrisome for early evolving melanoma in situ (Right lower back. 10/20/16). Last visit: 1 year ago Established patient of RAÚL Enriquez All pertinent medical history, medications, and allergies were reviewed. General Exam: alert, oriented to person, place, and time, normal affect, well appearing Unaccompanied Areas not examined despite medical recommendation: Scalp, Examined Right leg Examined Head, Face Examined Left leg Examined Neck Examined Right foot Examined Chest Examined Left foot Examined Back Examined Buttocks Examined Abdomen Examined Digits,nails: Examined Right arm Examined Left arm Examined Lymphatics: Not examined Hands Examined 1. Melanocytic nevus of trunk Scattered benign appearing, regular brown to light brown melanocytic papules and macules with similar morphology Counseled regarding these benign growths. Rarely, a nevus can develop into malignant melanoma, so any changing nevi should be promptly re-evaluated. 2. Melanocytic nevus of lower extremity, unspecified laterality (2) Left Leg, Right Leg Scattered benign appearing, regular brown to light brown melanocytic papules and macules with similar morphology Counseled regarding these benign growths. Rarely, a nevus can develop into malignant melanoma, so any changing nevi should be promptly re-evaluated. 3. Seborrheic keratosis Stuck on verrucous, variably pigmented papules and plaques. Patient was counseled regarding these benign growths. Removal is normally not necessary, but they may be removed if they are symptomatic or for cosmetic reasons. 4. Lentigines Scattered zuniga macules in sun-exposed areas. The patient was informed that lentigines are benign pigmented lesions that occur on sun-exposed and sun-damaged skin. No treatment is necessary. Recommended regular use of broad spectrum sunscreen SPF 30 or higher 5. Dermatofibroma Right Thigh - Anterior Firm brown papule that dimples with lateral pressure. Discussed that these are benign scars on the skin. If lesion is changing/symptomatic, return to office to have lesion re-evaluated 6. History of nevus excision No evidence of recurrence in scar from atypical mole excision. Notify office for any recurrence at surgery site or for any new or changing lesions. 7. Neoplasm of unspecified behavior of bone, soft tissue, and skin Left Upper Arm [place] macule Lesion biopsy Type of biopsy: tangential Informed consent: discussed and consent obtained Informed consent comment: The risks and benefits of the biopsy were discussed. Risks include but are not limited to bleeding, infection, scarring, pain, and nerve damage. An opportunity to ask questions prior to the procedure was permitted and all questions were answered. Patient was prepped and draped in usual sterile fashion: area cleansed with alcohol. Anesthesia: the lesion was anesthetized in a standard fashion Anesthetic: 1% lidocaine w/ epinephrine 1-100,000 buffered w/ 8.4% NaHCO3 Instrument used: DermaBlade Hemostasis achieved with: electrodesiccation Outcome: patient tolerated procedure well Outcome comment: The specimen was placed in a prelabeled formalin container to be sent for pathology Post-procedure details: sterile dressing applied and wound care instructions given Post-procedure details comment: Emphasized need to contact clinic for any signs of infection, uncontrollable bleeding, or complications. Dressing type: bandage Additional details: Photo taken Amount of lidocaine used: 1.0 cc Specimen A - Dermatopathology exam Differential Diagnosis: BCC vs spitz nevus vs other Check Margins: No Size of lesion: 0.7 x 0.5 cm Shave biopsy today, see procedure note. Patient will be notified of results. Follow up pending biopsy results. Next Visit: 1 year skin exam, pending biopsy results documented in this encounter [facility] 04-26-2023 Evaluation note Encounter Date Diagnosis Assessment Notes Apr, Obesity (ICD-10 - E66.9) Apr, BMI 36.0-36.9,a dult (ICD-10 - Z68.36) Apr, Other Summary of Visit: (A) discussed successes, challenges and goals; (B) reviewed quick veggies (C) goal setting and habit stacking Patient set the following goals: - drink 16 oz water in morning before work; gradually work on 16 oz after work- PARTIALLY MET; CONTINUE - plan 1-2 nights of dinner this week, incorporating fruits and veggies- MET, CONTINUE - NEW: add frozen and canned fruits and veggie to grocery list [facility] Other 12-27-2023 Evaluation note* Encounter Date Diagnosis Assessment Notes Treatment Notes Treatment Clinical Notes Feb, Obesity (ICD-10 - E66.9) Patient continues to respond very positively with an additional 8.6 pounds weight loss over the last 8 weeks, down a total of 29.5 pounds or 13% body weight since starting with us February 2022. She continues to tolerate respond positively to Wegovy at the 2.4 mg without significant adverse effect. She endorses a transient nausea throughout the week but nothing that has been extreme. She endorses positive effect of smaller portion sizes, better decisions when it comes to food and a decrease in her alcohol intake. She did obtain labs for review in office today which was reviewed in detail with her. Continue Wegovy maintain at 2.4 mg Continue to focus on good protein intake and consistent exercise which can help preserve muscle and promote fat loss We reviewed trends in office today with her BMI down from 37.8-32.7, waist circumference down from 44 to 38 inches and body fat percentage down from 45.7 to 43%. Reviewed labs in office today Feb, Daytime sleepiness (ICD-10 - R40.0) Feb, Alcohol use (ICD-10 - Z78.9) She reports alcohol use down significantly prior to starting this medication which has been a secondary benefit. Feb, Depression (ICD-10 - F32.9) Feb, Anxiety (ICD-10 - F41.9) Feb, Kidney stones (ICD-10 - N20.0) Feb, Gestational diabetes (ICD-10 - O24.419) Feb, Encounter for weight management (ICD-10 - Z76.89) Feb, Impaired fasting glucose (ICD-10 - R73.01) Most recent lab work revealed an improved fasting glucose versus the low 100s on previous labs. [facility] Other 10-30-2023 Evaluation note* Encounter Date Diagnosis Assessment Notes Treatment Notes Treatment Clinical Notes Dec, Obesity (ICD-10 - E66.9) Patient continues to respond positively to Wegovy at the 2.4 mg dose without adverse side effect. She is down an additional 7.4 pounds since her last visit, down a total of 20.9 pounds or 9% body weight loss. Our second weight loss goal be 10% (22 pounds). She continues to feel positive benefit of feeling lloyd faster and better decision making when it comes to dietary choices. She continues to be strong in her CrossFit routine 3 to 4 days a week. Reviewed trends in office today and a significant improvement in her blood pressure. Continue Wegovy 2.4 mg for least a few additional months to maximize weight loss. Consider maintaining at 1.7 mg as available from consumer affairs manager and/or insurance coverage. Continue to engage with the dietitian, next visit scheduled next week Fasting labs printed and handed to patient to be obtained at [facility] prior to our follow-up visit towards the end of the year and assess progress and clinical response to near 10% weight loss Dec, Daytime sleepiness (ICD-10 - R40.0) Dec, Alcohol use (ICD-10 - Z78.9) We did not address any alcohol intake, will discuss at future visit Dec, Depression (ICD-10 - F32.9) She denies any mood swings or severe depressive thoughts in office today Dec, Anxiety (ICD-10 - F41.9) Dec, Kidney stones (ICD-10 - N20.0) Dec, Gestational diabetes (ICD-10 - O24.419) Dec, Encounter for weight management (ICD-10 - Z76.89) Dec, Impaired fasting glucose (ICD-10 - R73.01) [facility] Other 09-18-2023 Evaluation note* Encounter Date Diagnosis Assessment Notes Treatment Notes Treatment Clinical Notes Nov, Obesity (ICD-10 - E66.9) Patient has responded very positively to Wegovy and subsequent increases up to Wegovy 1.7 mg this last week. She denies adverse effects and feels positive effect of feeling lloyd faster and being able to make better decisions when it comes to food. Her alcohol intake is also decreased significantly. She is down an additional 6.3 pounds in the last 6 weeks which is on goal with our half pound to 2 pounds of weight loss per week. She down a total of 13.5 pounds since starting with us which equates to a 6% body weight loss. Her second weight loss goal will be 10% (22 pounds). Praised her in her efforts and success so far. I do feel that this medication is ideal and superior for her and benefits outweighing risks at this point. After patient provider discussion we decided to go ahead and increase to the 2.4 mg dose to maximize therapeutic effect then consider decreasing to the 1.7 for maintenance later on. Continue Wegovy, increase to 2.4 mg Continue to connect with dietitian for further meal prep and planning guidance. Revisited the idea of meal delivery service that can aid in her meal prep and planning that she struggles with Praised her for her continuous physical activity CrossFit Increase water intake and fiber to aid in constipation relief. Strong focus of protein to decrease muscle wasting as well. Anticipate labs ordered at following visit, last labs in February 2022 Nov, Daytime sleepiness (ICD-10 - R40.0) She reports her energy is good overall without significant decrease with new medication added. She is still drinking energy drinks. Nov, Alcohol use (ICD-10 - Z78.9) She reports decrease in alcohol consumption Nov, Depression (ICD-10 - F32.9) She denies any changes in mood or severe depressive thoughts in office today. Nov, Anxiety (ICD-10 - F41.9) Nov, Kidney stones (ICD-10 - N20.0) Nov, Gestational diabetes (ICD-10 - O24.419) Nov, Encounter for weight management (ICD-10 - Z76.89) Nov, Impaired fasting glucose (ICD-10 - R73.01) [facility] Other 08-02-2023 Evaluation note* Encounter Date Diagnosis Assessment Notes Treatment Notes Treatment Clinical Notes Oct, Obesity (ICD-10 - E66.9) Patient is responding positively to Wegovy at the 0.5 mg dose with some transient nausea. She is down to 5.3 pounds since her previous visit total of 7.2 pounds since starting with Wegovy. Our initial goal will be 5% weight loss (11 pounds) from her initial weight. Her second weight loss goal will be 10% (22 pounds) from her initial weight. She is receiving positive benefit of some decreased appetite however she does seem to still be struggling with a lot of boredom eating and eating despite satiety. Reinforced being mindful of choices and portion sizes. She may receive additional benefit of medication as we continue to increase the dose. After patient provider discussion we are open to increasing to the 1 mg dose. Continue to reinforce small frequent meals throughout the day with focus on protein. Continue to work on meal prep and planning, she met with the dietitian yesterday who has given her some ideal tips and tricks for her individual lifestyle. Oct, Daytime sleepiness (ICD-10 - R40.0) Continue to work on increasing water intake as well as physical activity. Continue good sleep hygiene Oct, Alcohol use (ICD-10 - Z78.9) We did briefly discuss alcohol use and how it may be working against her in her weight loss goals and overall health goals. Encouraged her to be mindful of intake in the empty calories it contributes. Hopefully with increasing doses of the Wegovy she may also receive some benefit of decreased alcohol intake as well Oct, Depression (ICD-10 - F32.9) Oct, Anxiety (ICD-10 - F41.9) Oct, Kidney stones (ICD-10 - N20.0) Oct, Gestational diabetes (ICD-10 - O24.419) Oct, Encounter for weight management (ICD-10 - Z76.89) Oct, Impaired fasting glucose (ICD-10 - R73.01) [facility] Other 08-01-2023 Evaluation note* Encounter Date Diagnosis Assessment Notes Treatment Notes Treatment Clinical Notes Oct, Obesity (ICD-10 - E66.9) Oct, BMI 36.0-36.9,adult (ICD-10 - Z68.36) Oct, Other Summary of Visi t: (A) discussed successes, challenges and goals; (B) reviewed better frozen meals and pairing w/ fiber food (C) small goal setting to increase confidence and creating strong routines Patient set the following goals: - drink 16 oz water in morning before work; gradually work on 16 oz after work- PARTIALLY MET; CONTINUE - plan 1-2 nights of dinner this week, incorporating fruits and veggies- MET, CONTINUE [facility] Other 07-10-2023 Evaluation note* Encounter Date Diagnosis Assessment Notes Treatment Notes Treatment Clinical Notes Sep, Obesity (ICD-10 - E66.9) [facility] Other 06-14-2023 Evaluation note* Encounter Date Diagnosis Assessment Notes Treatment Notes Treatment Clinical Notes Aug, Obesity (ICD-10 - E66.9) Patient continues to remain stable and her weight and progress. Unfortunately she failed Saxenda between February and June due to lack of 5% weight loss. I do feel that Wegovy would be a suitable alternative which was previously sent to the pharmacy at last visit but insurance stated she must be in a weight management program for 6 months which is this week. We will go ahead and resend the prescription with a note to rerun it with this information. Reinforced that this will need to be used in conjunction with effort in better dietary choices decreasing alcohol and her consistent exercise. Praised her in her CrossFit 3 times a week routine that she has. Strongly encouraged to be mindful of her alcoholic beverages which Wegovy may also be beneficial in reaching this goal. Ozempic SAMPLES was given in office today since patient has put good kassandra effort for the last 6 months and following up for appointments and I do believe she has a desire to lose weight. Unfortunately Wegovy may be experiencing some long-term shortages which we will navigate could consider Ozempic if insurance would approve as well Aug, Daytime sleepiness (ICD-10 - R40.0) Aug, Alcohol use (ICD-10 - Z78.9) In our discussion of alcohol today she does admit that her average intake has increased during the summertime and they have a membership to a local bar that they enjoy going to. Reinforced that her actions are not always lying up with her goals and she may need to reconsider the amount of alcohol that she is consuming. Is not only for weight loss but other health benefits as well. Aug, Depression (ICD-10 - F32.9) Could still strongly consider adding bupropion as an adjunct as patient may have some underlying depression that she will be treated with alcohol. Will discuss at future visit. Aug, Anxiety (ICD-10 - F41.9) Aug, Kidney stones (ICD-10 - N20.0) Aug, Gestational diabetes (ICD-10 - O24.419) Aug, Encounter for weight management (ICD-10 - Z76.89) Aug, Impaired fasting glucose (ICD-10 - R73.01) [facility] Other 05-10-2023 Evaluation note* Encounter Date Diagnosis Assessment Notes Treatment Notes Treatment Clinical Notes July, Obesity (ICD-10 - E66.9) July, BMI 36.0-36.9,adult (ICD-10 - Z68.36) July, Other Summary of Visi t: (A) reviewed tips for gradual meal planning using convenience foods (B) encouraged planning take-out / dining out nights (C) continue to work to increase water intake Patient set the following goals: - NEW: drink 16 oz water in morning before work; gradually work on 16 oz after work - NEW: plan 1-2 nights of dinner this week, incorporating fruits and veggies [facility] Other 05-03-2023 Evaluation note* Encounter Date Diagnosis Assessment Notes Treatment Notes Treatment Clinical Notes July, Obesity (ICD-10 - E66.9) After patient provider discussion we will go ahead and stop the Saxenda due to lack of therapeutic effect not reaching her initial weight loss goal 5% (11 pounds) over 4 months time. We will go ahead and trial Stan, SAMPLE given in office today and prescription sent for 0.5 mg dose for coverage of insurance. Our alternative medication will be a Wellbutrin naltrexone combination. Again reiterated to patient that we need to put a primary focus on incorporating more fruits and vegetables and focusing on the quality of the food she is eating more than anything. I am hopeful that dietitian will be able to take the time to dive into her concerns and help guide her on better meal prep and planning on an individual basis. Reinforced that potatoes and corn while they are vegetables are higher carbohydrate items and should be used in moderation Focus on incorporating more fruits and veggies as well as whole grains into her diet encouraged to try frozen vegetables like to start using medications as a tool to reach lifestyle change Start Stan stop Saxenda July, Daytime sleepiness (ICD-10 - R40.0) July, Depression (ICD-10 - F32.9) Strongly consider Wellbutrin naltrexone as an alternative and/or adjunct medication due to patient's history of anxiety and depression July, Anxiety (ICD-10 - F41.9) July, Kidney stones (ICD-10 - N20.0) July, Gestational diabetes (ICD-10 - O24.419) July, Encounter for weight management (ICD-10 - Z76.89) July, Impaired fasting glucose (ICD-10 - R73.01) I do feel strongly that patient would still benefit from a GLP-1 agonist for both glucose control and weight loss. With her history of gestational diabetes and more recent lab work to support impaired fasting glucose I feel that she would potentially progressively worsen and lead to other comorbidities such as diabetes [facility] Other 03-20-2023 Evaluation note* Encounter Date Diagnosis Assessment Notes Treatment Notes Treatment Clinical Notes May, Obesity, unspecified classification, unspecified obesity type, unspecified whether serious comorbidity present (ICD-10 - E66.9) [facility] Other 03-15-2023 Evaluation note* Encounter Date Diagnosis Assessment Notes Treatment Notes Treatment Clinical Notes May, Obesity (ICD-10 - E66.9) Patient is responding to Saxenda however has not yet met our first weight loss goal 5% weight loss (11 pounds) from her starting weight. She is down a total of 4.7 pounds since being on Saxenda for the last couple months. Her prior Auth only approved this medication through 07/16/2022. We did discuss risk and benefit of continuing this medication we will give it an extra couple of weeks in addition to better diet choices and continuing her workout routine. May consider other alternatives as needed based on patient's clinical course. She is tolerating it without any adverse side effects May, Daytime sleepiness (ICD-10 - R40.0) She still endorses some daily daytime fatigue which I do feel may be partly due to inadequate diet and excessive caffeine and alcohol. Counseled on these today. May, Depression (ICD-10 - F32.9) She denies any severe mood swings or depressive thoughts in office today. We could consider medication such as Wellbutrin naltrexone as an alternative or adjunct medication for her treatment plan May, Anxiety (ICD-10 - F41.9) May, Kidney stones (ICD-10 - N20.0) May, Gestational diabetes (ICD-10 - O24.419) May, Encounter for weight management (ICD-10 - Z76.89) May, Impaired fasting glucose (ICD-10 - R73.01) [facility] Other 02-08-2023 Evaluation note* Encounter Date Diagnosis Assessment Notes Treatment Notes Treatment Clinical Notes Apr, Bronchitis (ICD-10 - J40) acute Bronchitis: Care Instructions material was printed. Encourage fluids and rest. Symptoms should improve within the next 4-7 days. Do not use other OTC cold/cough medications Cough may linger after viral or bacterial infections; sometimes for weeks. Patient should follow up with PCP if symptoms persist or worsen. Patient advised to go to ER immediately if experiencing shortness of breath or difficulty breathing. Patient verbalized understanding and agreement with treatment plan. [facility] Other 01-30-2023 Evaluation note* Encounter Date Diagnosis Assessment Notes Treatment Notes Treatment Clinical Notes Mar, Obesity (ICD-10 - E66.9) Patient is responding well to the Saxenda at the 3 mg dose. She has minimal side effects of nausea especially when titrating up the dose. She has found some shekhar chews that do help with this. She is also had some minor constipation although this has not gotten to the point of being extremely uncomfortable or going days on and without a bowel movement. Praised patient for her efforts and success so far. Long discussion had regarding calorie and carbohydrate intake with increased intake of beer. Advised patient to be mindful of her alcohol beverage intake. Encouraged to get 1 drink and then switch to either a no calorie or soda water or other beverage which will save on both calories and money also cautioned patient on energy drinks due to the addictive nature of caffeine and sugar that could also be working against her and her weight loss goals. We reviewed labs in office today. Mar, Daytime sleepiness (ICD-10 - R40.0) We discussed how caffeine and alcohol can both interrupt sleep cycles. Likely patient will adjust as we discussed in her visit today this will help to improve some daytime fatigue Mar, Depression (ICD-10 - F32.9) Mar, Anxiety (ICD-10 - F41.9) Mar, Kidney stones (ICD-10 - N20.0) Mar, Gestational diabetes (ICD-10 - O24.419) Mar, Encounter for weight management (ICD-10 - Z76.89) Mar, Impaired fasting glucose (ICD-10 - R73.01) Due to previous impaired fasting glucose found on initial labs we did do an A1c today which was 5.5. We discussed the translation of this. Due to history of gestational diabetes she is at high risk of developing diabetes later in life. She must be cautious of higher sugar and carbohydrate items to help reduce chance of this progressing to prediabetes and diabetes [facility] Other 01-17-2023 Evaluation note* Encounter Date Diagnosis Assessment Notes Treatment Notes Treatment Clinical Notes Mar, Obesity, unspecified classification, unspecified obesity type, unspecified whether serious comorbidity present (ICD-10 - E66.9) Mar, BMI 37.0-37.9, adult (ICD-10 - Z68.37) Mar, Other Summary of Visi t: (A) Presentation of Plate Method discussed (B) Sample meal ideas reviewed (C) exercise recommendations reviewed Patient set the following goals: - patient set personal goal using given handout. [facility] Other 12-12-2022 Evaluation note* Encounter Date Diagnosis Assessment Notes Treatment Notes Treatment Clinical Notes Feb, Obesity (ICD-10 - E66.9) Findings consistent with obesity. Patient understands that this increases risk of multiple comorbidities associated with weight gain especially if there is a genetic predisposition. Discussed the complexity behind obesity and its multifactorial causes including genetics, the biological changes that occur with processed foods as well as lack of physical activity. We will assess for underlying causes of abnormal weight gain including thyroid dysfunction, poor sleep, medications, diet, etc. Discussed importance of adopting a healthier lifestyle in order to decrease or eliminate risk of impending diseases associated with excessive weight. initial goal of modest weight loss approximately 3 to 5% can help to improve risk factors and some comorbidities. Our second goal of 10 to 15% weight loss can result in even more potentially disease modifying, remission or improved mortality benefits. Patient to obtain fasting labs we will review at follow-up We discussed the challenges of insurance coverage for weight loss medications specifically. We discussed trying for Saxenda and if not improved may follow back on a Wellbutrin naltrexone combination. Patient was given the generic start up paper for reference. Praised patient for her exercise of CrossFit 3 times weekly Encouraged to be mindful of her alcohol intake as 6 beers per week can add up to at a minimum 600 farhan/week Encouraged to cut back or cut out completely her energy drinks and being mindful of her caffeine intake with these in addition to her diet sodas. Advised to cut back or eliminate going out to eat and prioritizing meal prep and planning Feb, Daytime sleepiness (ICD-10 - R40.0) Encouraged good sleep hygiene by going to bed at approximately the same time each night and similar waking hours each day, not eating too close to bedtime, avoid excessive fluids and eating shortly before bed, turning off blue light on phone/computers, silencing notifications, etc. Fatigue during the day could also be related to blood sugar spikes and subsequent crashes related to poor dietary habits of high glucose or high carbohydrate meals and snacks. Increase water intake. Feb, Depression (ICD-10 - F32.9) PHQ-9 is positive for minimal depression with a score of 2 entering the program. Her PHQ-9 indicating trouble sleeping and poor appetite. Patient states mood is stable overall today and denies any significant mood swings or depressive thoughts. We would use extreme caution or avoid medications for weight loss including Qsymia, phentermine due to possibility of worsening depression. Discussed this with patient when evaluating for appropriate medication. Feb, Anxiety (ICD-10 - F41.9) Feb, Kidney stones (ICD-10 - N20.0) She had 1 isolated incident of kidney stones many years ago without any treatment or subsequent sequelae. We would take this into consideration when discussing alternative medications as needed. Feb, Gestational diabetes (ICD-10 - O24.419) With a history of gestational diabetes she is at higher risk for diabetes later in life. We will get initial labs to rule out any prediabetes or diabetes as we initiate program [facility] Other Evaluation noteNo assessment information available [facility] Work Phone: Evaluoekjh noteNo InformationNort [employer] Other Evaluation note* Diagnosis Onset Date Resolution Status Alcohol use acute Anxiety acute Daytime sleepiness acute Depression acute Gestational diabetes acute Impaired fasting glucose acu te Kidney stones acute Obesity acute Obesity, Class I, BMI 30-34.9 acute Encounter for weight management noneactive [facility] Work Phone: Evaluation note* Diagnosis Onset Date Resolution Status Abnormal weight gain acute Alcohol use acute Daytime sleepiness acute Gestational diabetes acute Impaired fasting glucose acu te Obesity, Class I, BMI 30-34.9 acute Encounter for weight management noneactive [facility] Work Phone: Evaluation note* Diagnosis Melanocytic nevus of trunk- Primary Benign neoplasm of skin of trunk, except scrotum Melanocytic nevus of lower extremity, unspecified laterality Seborrheic keratosis Lentigines Dermatofibroma Benign neoplasm of skin, site unspecified History of nevus excision Neoplasm of unspecified behavior of bone, soft tissue, and skin documented in this encounter [facility] N[facility]ative - Reported* Type Description Date Medical History anxiety Medical History Kidney Stones Medical History Gestational diabetes Medical History Pre-melanoma spot on abdomen and back Surgical History Pre-melanoma spot on abdomen an d back biopsy 2022 [facility] Other Summary Purpose Family History No Family History Records Found Relationship Condition Age at Onset Recorded Date/T jay father Unknown Malignant neoplasm Unknown Malignant neoplasm of lung Unknown Not Specified Malignant neoplasm Unknown Hypertension Unknown Malignant neoplasm of skin Unknown Rheumatoid arthritis Unknown Advance Directives No Advanced Directives Records Found Advance Directive Response Recorded Date/ Time Advance Directives No February 26, 2022 12:29pm Advance Directive Response Recorded Date/ Time Advance Directives No February 26, 2022 1:29pm Chief Complaint and Reason for Visit Chief Complaint Obesity Chief Complaint Obesity [employer] follow up Reason for Visit Alcohol use Anxiety Daytime sleepiness Depression Gestational diabetes Impaired fasting glucose Kidney stones Obesity Obesity, Class I, BMI 30-34.9 Encounter for weight management Chief Complaint [employer] follow up Reason for Visit Abnormal weight gain Alcohol use Daytime sleepiness Gestational diabetes Impaired fasting glucose Obesity, Class I, BMI 30-34.9 Encounter for weight management Additional Source Comments INFORMATION SOURCE (unrecogn ized section and content) DATE CREATED AUTHOR 03/12/2022 [facility] DATE CREATED AUTHOR AUTHOR'S ORGANIZ ATION 08/23/2023 [facility] DATE CREATED AUTHOR AUTHOR'S ORGANIZ ATION 02/23/2024 [facility] Care Teams (unrecognized sec tion and content) Team Status: Active Member Role Status Dates Barbara Hines MD Primary Care Provider Active Team Status: Inactive Member Role Status Dates Martha Healy APRN Attending Provider Active Start: July 18, 2023 End: July 18, 2023 Barbara Hines MD Primary Care Provider Active Start: July 18, 2023 End: July 18, 2023 Team Status: Inactive Member Role Status Dates Manuel Kim MD Attending Provider Active Team Status: Active Member Role Status Dates Martha Healy APRN Attending Provider Active Barbara Hines MD Primary Care Provider Active Team Status: Active Member Role Status Dates Martha Healy APRN Attending Provider Active Start: April 26, 2023 Barbara Hines MD Primary Care Provider Active Start: April 26, 2023 Icing Coater Relationship Specialty Start Date End Date Barbara Hines MD [address] [place] [id number] PCP - General Family Medicine 11/24/22 Icing Coater Relationship Specialty Start Date End Date Barbara Hines MD [address] [place] [id number] PCP - General Family Medicine 11/24/22 Goals (unrecognized section and content) Goals may be documented in a n alternate sectionNo InformationNo InformationNo InformationNo InformationNo InformationNo InformationNo InformationNo InformationNo InformationNo InformationNo InformationNo InformationNo InformationNo InformationNo InformationNo InformationNo InformationNo InformationNo InformationNo InformationNo InformationNo InformationNo InformationNo InformationNo InformationGoals may be documented in an alternate sectionGoals may be documented in an alternate section REASON FOR VISIT (unrecogniz ed section and content) Reason Comments Skin Check FOR RECORDS PERTAINING TO PATIENTS WHO ARE OR HAVE BEEN ENROLLED IN A CHEMICAL DEPENDENCY/SUBSTANCEABUSE PROGRAM, SOME INFORMATION MAY BE OMITTED. This clinical summary was aggregated from multiple sources. Caution should be exercised in using it in the provision of clinical care. This summary normalizes information from multiple sources, and as a consequence, information in this document may materially change the coding, format and clinical context of patient data. In addition, data may be omitted in some cases. CLINICAL DECISIONS SHOULD BE BASED ON THE PRIMARY CLINICAL RECORDS. [employer] [facility]. provides no warranty or guarantee of the accuracy or completeness of information in this document.
[2024-03-10 11:59] LABS: Hematocrit 37.3 % (36.0-48.0); Hemoglobin 11.5 g/dL (12.0-16.0); Mean Corpuscular HGB Conc 30.8 g/dL (29.9-35.2); Mean Corpuscular Volume 81.1 fL (81.0-99.0); Platelet Count 262 10^3/uL (150-450); Red Cell Distribution Width 14.3 % (11.0-15.0); White Blood Count 5.5 10^3/uL (4.0-11.0)
[2024-03-10 12:43] LABS: Alanine Aminotransferase 20 U/L (14-59); Albumin Level 3.3 g/dL (3.4-5.0); Alkaline Phosphatase 66 U/L (46-116); Anion Gap 13.8; Aspartate Amino Transferase 14 U/L (15-37); BUN Creatinine Ratio 11.2; Bilirubin Total 0.4 mg/dL (0.2-1.0); Calcium 8.1 mg/dL (8.5-10.1); Carbon Dioxide 24.4 mmol/L (21.0-32.0); Chloride 109 mmol/L (98-107); Chol HDL Ratio 2.7; Cholesterol 177 mg/dL (<=200); Estimated GFR (African America >60 (>=60 mL/min/1.73m^2); Estimated GFR (Non-African Ame 60 (>=60 mL/min/1.73m^2); Globulin 3.3 g/dL; Glucose 93 mg/dL (74-106); HDL Cholesterol 66 mg/dL (40-60); Potassium 4.2 mmol/L (3.5-5.1); Sodium 143 mmol/L (136-145); TSH W/ REFLEX FT4 1.228 uIU/mL (0.358-3.740); Total Protein 6.6 g/dL (6.4-8.2); Triglycerides 51 mg/dL (<=150); VLDL CHOLESTEROL 10.2 mg/dL
[2024-03-10 12:55] LABS: Estimated Average Glucose 111 mg/dL; Glycohemoglobin A1C 5.5 % (4.5-6.2)
== END 2024-03-10 11:46 | disposition home or self-care (01) ==
LOC: LAB 11:47
PROVIDERS: PCP Family Medicine
DX: N20.0 Calculus of kidney (principal); Z91.89 Other specified personal risk factors, not elsewhere classified; E66.9 Obesity, unspecified; F32.A Depression, unspecified; R40.0 Somnolence; E66.01 Morbid (severe) obesity due to excess calories
CPT/HCPCS: 36415; 80053; 80061; 83036; 84443; 85027